=== PATIENT | female | born 1965 | race Caucasian/White ===

== ENCOUNTER → 2020-02-27 | Outpatient (CLI) | payer OTHER, MEDICAID | LOC: M.LAB 08:06 | PROVIDERS: ATTEND Internal Medicine Gastroenterology | DX: Z01.812 Encounter for preprocedural laboratory examination (principal); R19.7 Diarrhea, unspecified; R10.9 Unspecified abdominal pain; K50.90 Crohn's disease, unspecified, without complications; E87.6 Hypokalemia ==